=== PATIENT | female | born 1930 | race Caucasian/White ===

== ENCOUNTER 2016-12-04 14:17 | Emergency (ER) | payer OTHER ==
--- NOTE | 2016-12-04 15:29 | DIAGNOSTIC IMAGING REPORT ---
PROCEDURE: CT HEAD WITHOUT CONTRAST INDICATION: PAIN, high blood pressure, Parkinson's. TECHNIQUE: Axial CT images were acquired through the head. Coronal and sagittal reformations were created. COMPARISON: None. FINDINGS: Mild cerebral cortical and cerebellar atrophy. Moderate diffuse hypodensity in the periventricular and subcortical white matter. No intracranial hemorrhage or extraaxial fluid collections. Ventricles are normal in size, shape and position. There is no mass, mass effect or midline shift. The leo-white matter differentiation is normal. There is no edema. Heavy calcific atherosclerosis of the intracranial internal carotid arteries. The calvarium is intact. The paranasal sinuses and mastoid air cells are normally aerated. The extracranial soft tissues and orbits are normal. IMPRESSION: 1. No CT evidence of acute intracranial process. 2. Age related involutional and white matter changes. 3. Findings discussed with Ramona Guerra at [address] scans at this facility use dose modulation, iterative reconstruction, and/or weight-based dosing when appropriate to reduce radiation dose to as low as reasonably achievable.
--- NOTE | 2016-12-04 16:06 | DIAGNOSTIC IMAGING REPORT ---
PROCEDURE: XR CHEST 2 VIEW INDICATION: CHEST PAIN TECHNIQUE: PA and lateral view. COMPARISON: None. FINDINGS: Moderate hyperinflation. Lungs are clear. Cardiovascular structures are normal. Bilateral axillary surgical clips. Bony thorax is unremarkable. IMPRESSION: 1. Hyperinflation 2. No acute changes
--- NOTE | 2016-12-04 16:20 | ED ORDER SUMMARY ---
..... Patient: QUINN SIMS OrderSheet [facility] VisitID: [id number] [address] [place] [address] 86y, F Registration Date/Time: 12/04/2016 ORDER SHEET Weight: 48.0 kg (stated) Allergies: Flu Virus Vaccine GENERAL ORDERS: CT Head wo Cont Urgent (15:00 12/04/2016 EKoroleva P.A.-C) (Ack 15:16 PWeiler ER Tech1) (15:39 GMarshall R.N.) Chest 2V (ELEVATED BP) Urgent (15:00 12/04/2016 EKoroleva P.A.-C) (Ack 15:16 PWeiler ER Tech1) (15:39 GMarshall R.N.) EKG - ER Stat (15:01 12/04/2016 EKoroleva P.A.-C) (15:04 LNations ER Tech1) Call (Place call to): () (EKG from DR. Vela office (Old) to compare) (15:13 12/04/2016 EKoroleva P.A.-C) (Ack 15:16 PWeiler ER Tech1) (15:36 PWeiler ER Tech1) Vitals (BP) (1540) (15:35 12/04/2016 EKoroleva P.A.-C) (15:38 GMarshall R.N.) MEDICATION ORDERS: IV FLUIDS: IV NS : initial bolus 500 mL (1000 mL/hr), then 10 mL/hr for X1 (NOW); Dick (15:01 12/04/2016 EKoroleva P.A.-C) (15:44 JBest R.N.) ORDER SHEET NOTES: [Electronically signed by Pat Guerra P.A.-C (16:35 12/04/2016)] [Electronically signed by Yeimy Ramon R.N. (21:49 12/04/2016)] [Electronically locked/signed by Yeimy Ramon R.N. (21:49 12/04/2016)]
--- NOTE | 2016-12-04 16:20 | ED ORDER SUMMARY ---
..... Patient: QUINN SIMS OrderSheet [facility] VisitID: [id number] [address] [place] [address] 86y, F Registration Date/Time: 12/04/2016 ORDER SHEET Weight: 48.0 kg (stated) Allergies: Flu Virus Vaccine GENERAL ORDERS: CT Head wo Cont Urgent (15:00 12/04/2016 EKoroleva P.A.-C) (Ack 15:16 PWeiler ER Tech1) (15:39 GMarshall R.N.) Chest 2V (ELEVATED BP) Urgent (15:00 12/04/2016 EKoroleva P.A.-C) (Ack 15:16 PWeiler ER Tech1) (15:39 GMarshall R.N.) EKG - ER Stat (15:01 12/04/2016 EKoroleva P.A.-C) (15:04 LNations ER Tech1) Call (Place call to): () (EKG from DR. Vela office (Old) to compare) (15:13 12/04/2016 EKoroleva P.A.-C) (Ack 15:16 PWeiler ER Tech1) (15:36 PWeiler ER Tech1) Vitals (BP) (1540) (15:35 12/04/2016 EKoroleva P.A.-C) (15:38 GMarshall R.N.) MEDICATION ORDERS: IV FLUIDS: IV NS : initial bolus 500 mL (1000 mL/hr), then 10 mL/hr for X1 (NOW); Dick (15:01 12/04/2016 EKoroleva P.A.-C) (15:44 JBest R.N.) ORDER SHEET NOTES: [Electronically signed by Pat Guerra P.A.-C (16:35 12/04/2016)] [Electronically signed by Yeimy Ramon R.N. (21:49 12/04/2016)] [Electronically locked/signed by Yeimy Ramon R.N. (21:49 12/04/2016)]
--- NOTE | 2016-12-04 16:20 | ED NURSING NOTES ---
Clinical Report - Nurses [facility] [address] [place] [address] 12/04/2016 14:21 Patient: QUINN SIMS TRIAGE Triage time 14:38 Dec 04 2016. Chief Complaint: SHORTNESS OF BREATH. --14:41 Yeimy Ramon R.N. 14:51 12/04/16. BP: 137/65 taken on the right arm, manually, while lying. PA notified. HR: 80. RR: 18. O2 saturation: 96%. Temp: 98.2 F. Pain level now: 0/10. --14:55 Yeimy Ramon R.N. Acuity: LEVEL 3. --14:56 Yeimy Ramon R.N. 14:49. --17:47 Yeimy Ramon R.N. Weight: 48 kg stated. Height/Length: 64 inches Per Patient. BMI: 18.2. --14:37 Yeimy Ramon R.N. Medications Aspirin Oral. --14:43 Yeimy Ramon R.N. Carbidopa-Levodopa Oral 25/100 mg. --14:44 Yeimy Ramon R.N. ROPINIRole HCl Oral (Tablet 1 mg) 3 tabs, QID. --14:44 Yeimy Ramon R.N. Midodrine HCl Oral 2.5 mg, BID. --14:45 Yeimy Ramon R.N. Escitalopram Oxalate Oral 10 mg, at bedtime (1/2 tab (5mg)). --14:45 Yeimy Ramon R.N. Lumigan Ophthalmic. --14:46 Yeimy Ramon R.N. Vitamin B 12 Oral. --14:46 Yeimy Ramon R.N. Vitamin B-6 Oral. --14:46 Yeimy Ramon R.N. Vitamin D3 Oral (Tablet 2000 unit) 1 tablet. --14:46 Yeimy Ramon R.N. Fish Oil + D3 Oral (Capsule 1801-9068 mg-unit) 2 capsules. --14:47 Yeimy Ramon R.N. Zinc Oral (Tablet 50 mg) 1 tablet, daily. --14:47 Yeimy Ramon R.N. Allergies Flu Virus Vaccine. --17:47 Yeimy Ramon R.N. History Arrived by private vehicle. Historian: family. Accompanied by family. Primary physician (Mercedes). This started today. ( Has had increased BP throughout the morning and into this afternoon. At 1308 185/90 HR 87, at 1325 183/87 HR 83, at 1340 207/94 HR 87, at 1345 214/107 HR 83.). 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 (took benadryl because she thought she was having a reaction to something). --14:41 Yeimy Ramon R.N. PAST MEDICAL HX: Hypertension. Immunizations: up-to-date. The patient is post-menopausal. Denies current . SURGERY HX: Right and left mastectomy (in 2002). SOCIAL HX: Never smoker. No alcohol use or drug use. No infectious disease exposure. FALL RISK ASSESSMENT: Fall risk assessment completed. Risk factors identified include patient age greater than 65 years and impairment of mobility. Fall interventions initiated. Side rails up x2. Brakes on Bed in low position. Family at bedside. Call light in reach of patient. Instructed not to get up without assistance. --14:51 Yeimy Ramon R.N. PROBLEMS: Hypertension. Parkinsons. --14:42 Yeimy Ramon R.N. Cancer. --14:48 Yeimy Ramon R.N. Interventions ID band on patient. To room. --14:56 Yeimy Ramon R.N. PHYSICAL ASSESSMENT Ambulatory to room. GENERAL / NEURO / PSYCH: Alert. Oriented X 4. Appears in no acute distress. Appears anxious. RESPIRATORY: Respirations not labored. Breath sounds within normal limits. CVS: Pulses within normal limits. SKIN: Skin is warm and dry. Skin is non-tender. --15:01 Yeimy Ramon R.N. 14:48 12/04/16. BP: 148/105 (regular adult cuff) taken on the left arm, manually, while lying. --15:28 Yeimy Ramon R.N. NURSING PROGRESS NOTES Monitoring of patient in place. Patient gowned. Reassurance given. Patient identifiers checked. Call light placed in reach. Side rails up x 2. Bed placed in lowest position. Brakes of bed on. Patient ready for evaluation- PA notified. --15:01 Yeimy Ramon R.N. Patient transported to radiology by stretcher with tech. --15:12 Yeimy Ramon R.N. EKG time: (1512). EKG was ordered, performed by a tech and shown to the ED physician. --15:20 Jo-Ann Murdock, LALA Tech1 15:44 12/04/2016 Site #1 started via IV in the right forearm with an 22g angiocath, with aseptic technique and good blood return; one attempt. Blood drawn: rainbow set. Saline lock flushed with 10 mL saline. --15:44 Yeimy Ramon R.N. 15:44 12/04/2016 Started bag #1 1000 mL IV Fluids IV NS (Saline); bolus of 500 mL over 30 minute(s) via site #1 via IV pump. Allergies verified and confirmed 5 rights. IV patency established. IV site checked: no pain, redness, or swelling. IV flushed thoroughly pre- and post-medication administration. --15:44 Yeimy Ramon R.N. <<STRICKEN ENTRY-- 16:00 12/04/16. BP: 116/113 (regular adult cuff) taken on the left arm, via an automated monitor, while lying. HR: 86. --16:01 Yeimy Ramon R.N. --END STRIKE>> Correction. --16:04 Yeimy Ramon R.N. 16:01 12/04/16. BP: 158/97 (regular adult cuff) taken on the right arm, via an automated monitor, while lying. HR: 86. --16:02 Yeimy Ramon R.N. 16:00 12/04/16. BP: 168/113 (regular adult cuff) taken on the left arm, while lying. HR: 86. --16:05 Yeimy Ramon R.N. 16:26 12/04/2016 IV Fluids IV NS Discontinued: bag #1 STOPPED upon discharge. Total amount infused: 500 mL. --16:36 Yeimy aRmon R.N. DISPOSITION / DISCHARGE 16:28 12/04/16. BP: 156/92 (regular adult cuff) taken on the right arm, via an automated monitor, while lying. HR: 84. RR: 18. O2 saturation: 96%. Temp: 98.2 F. Pain level now: 0/10. --16:28 Yeimy Ramon R.N. 16:25 12/04/2016 Site #1 removed upon discharge. Catheter intact. Bandaid applied. --16:35 Yeimy Ramon R.N. Departure time: 16:35. Discharge instructions provided and reviewed with the patient and family. Patient and family verbalized understanding. Written instructions provided in Serbian. The patient was discharged by the physician promotional advertising assistant. She was discharged home and accompanied by family. She left the Emergency Department ambulatory, via private vehicle and (walker). Family member driving. --16:36 Yeimy Ramon R.N. Locked/Released at 12/04/2016 21:49 by Yeimy Ramon R.N.
--- NOTE | 2016-12-04 16:20 | ED CLINICAL REPORT ---
Clinical Report - Physicians/Mid Levels [facility] [address] [place] [address] 12/04/2016 14:21 Patient: QUINN SIMS Time Seen: 15:01 Dec 04 2016. Arrived- By private vehicle. Historian- patient and daughter. HISTORY OF PRESENT ILLNESS Chief Complaint: abd pain. This started just prior to arrival and is still present. No weight loss or fatigue. Denies sleep problem. She has had weakness. (The patient presents to the emergency department with her daughter, who reports patient had vague symptoms of some abdominal pain and cramping today earlier. Patient did not take her noon medications, daughter arrived, she encouraged to take her antihypertensive medications at 1 PM. She monitored herblood pressure while there and it was elevated greater than 200, they called primary care provider, and is referred into the emergency department. Patient has no symptoms currently.). REVIEW OF SYSTEMS No fever, sore throat, sinus drainage, cough or chills. All systems otherwise negative, except as recorded above. PAST HISTORY Problems: LVH. Cancer. Hypertension. Parkinsons. Additional Surgeries: Mastectomy. Medications: Zinc Oral (Tablet 50 mg) 1 tablet, daily. Fish Oil + D3 Oral (Capsule 9789-6138 mg-unit) 2 capsules. Vitamin D3 Oral (Tablet 2000 unit) 1 tablet. Vitamin B-6 Oral. Vitamin B 12 Oral. Lumigan Ophthalmic. Escitalopram Oxalate Oral 10 mg, at bedtime (1/2 tab (5mg)). Midodrine HCl Oral 2.5 mg, BID. ROPINIRole HCl Oral (Tablet 1 mg) 3 tabs, QID. Carbidopa-Levodopa Oral 25/100 mg. Aspirin Oral. SOCIAL HISTORY Never smoker. No alcohol use or drug use. ADDITIONAL NOTES The nursing notes have been reviewed. PHYSICAL EXAM Vital Signs: 12/04/2016 14:51 BP: 137/65. HR: 80. RR: 18. O2 saturation: 96%. Temp: 98.2 F. Pain level now: 0/10. 12/04/2016 14:48 BP: 148/105. Appearance: Alert. No acute distress. ENT: Ears normal. Nose normal. Neck: Normal inspection. CVS: Normal heart rate and rhythm. Heart sounds normal. Respiratory: No respiratory distress. Breath sounds normal. No accessory muscle use. Abdomen: No visible injury. Bowel sounds normal. Skin: Skin warm. Normal skin color. Neuro: Altered mental status. Eyes open spontaneously. Best verbal response: disoriented. Best motor response: obeys commands. (b/l hand tremor). LABS, X-RAYS, AND EKG EKG: EKG time: (1512). No acute process. No acute ischemia. LVH. EKG unchanged when compared with prior EKG. (05/10/15 on poor visualized EKG< paper/ shadowing, grossly no changes). The EKG appears to be a good tracing. Chest X-ray: (IMPRESSION: 1. Hyperinflation 2. No acute changes Electronically Final signed by:Dieudonne Bah MD 12/04/2016 4:06:42 PM). CT Head: (IMPRESSION: 1. No CT evidence of acute intracranial process. 2. Age related involutional and white matter changes. 3. Findings discussed with Ramona Guerra at [address] scans at this facility use dose modulation, iterative reconstruction, and/or weight-based dosing when appropriate to reduce radiation dose to as low as reasonably achievable. Electronically Final signed by:Catalina Ruiz MD 12/04/2016 3:29:33 PM). PROGRESS AND PROCEDURES Course of Care: Records reviewed, prior ECHO confirm LVH Patient given some IV hydration. CT of the head is unremarkable. Discussed options with family at bedside. No injury. Mom behaving her normal self per family, son and daughter. No signs of acute hemorrhage. Mom behaving her normal self. Stable. Unclear if she takes meds as appropriate, to monitor this and f/u outpatient with PCP. 12/04/2016 16:28 BP: 156/92. HR: 84. RR: 18. O2 saturation: 96%. Temp: 98.2 F. Pain level now: 0/10. 12/04/2016 16:01 BP: 158/97. HR: 86. Patient is stable. Symptoms better. Patient/family counseled. Disposition: Discharged. CLINICAL IMPRESSION Uncontrolled hypertension. Uncontrolled hypertension. INSTRUCTIONS (Follow up with Primary CARE DR in next 4-5 days IT is important to take timely medications on a regular basis to get in a good pattern for your Blood PRESSURE). (Electronically signed by Pat Guerra P.A.-C 12/04/2016 16:35)
--- NOTE | 2016-12-04 16:20 | ED NURSING NOTES ---
Clinical Report - Nurses [facility] [address] [place] [address] 12/04/2016 14:21 Patient: QUINN SIMS TRIAGE Triage time 14:38 Dec 04 2016. Chief Complaint: SHORTNESS OF BREATH. --14:41 Yeimy Ramon R.N. 14:51 12/04/16. BP: 137/65 taken on the right arm, manually, while lying. PA notified. HR: 80. RR: 18. O2 saturation: 96%. Temp: 98.2 F. Pain level now: 0/10. --14:55 Yeimy Ramon R.N. Acuity: LEVEL 3. --14:56 Yeimy Ramon R.N. 14:49. --17:47 Yeimy Ramon R.N. Weight: 48 kg stated. Height/Length: 64 inches Per Patient. BMI: 18.2. --14:37 Yeimy Ramon R.N. Medications Aspirin Oral. --14:43 Yeimy Ramon R.N. Carbidopa-Levodopa Oral 25/100 mg. --14:44 Yeimy Ramon R.N. ROPINIRole HCl Oral (Tablet 1 mg) 3 tabs, QID. --14:44 Yeimy Ramon R.N. Midodrine HCl Oral 2.5 mg, BID. --14:45 Yeimy Ramon R.N. Escitalopram Oxalate Oral 10 mg, at bedtime (1/2 tab (5mg)). --14:45 Yeimy Ramon R.N. Lumigan Ophthalmic. --14:46 Yeimy Ramon R.N. Vitamin B 12 Oral. --14:46 Yeimy Ramon R.N. Vitamin B-6 Oral. --14:46 Yeimy Ramon R.N. Vitamin D3 Oral (Tablet 2000 unit) 1 tablet. --14:46 Yeimy Ramon R.N. Fish Oil + D3 Oral (Capsule 9259-7830 mg-unit) 2 capsules. --14:47 Yeimy Ramon R.N. Zinc Oral (Tablet 50 mg) 1 tablet, daily. --14:47 Yeimy Ramon R.N. Allergies Flu Virus Vaccine. --17:47 Yeimy Ramon R.N. History Arrived by private vehicle. Historian: family. Accompanied by family. Primary physician (Mercedes). This started today. ( Has had increased BP throughout the morning and into this afternoon. At 1308 185/90 HR 87, at 1325 183/87 HR 83, at 1340 207/94 HR 87, at 1345 214/107 HR 83.). 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 (took benadryl because she thought she was having a reaction to something). --14:41 Yeimy Ramon R.N. PAST MEDICAL HX: Hypertension. Immunizations: up-to-date. The patient is post-menopausal. Denies current . SURGERY HX: Right and left mastectomy (in 2002). SOCIAL HX: Never smoker. No alcohol use or drug use. No infectious disease exposure. FALL RISK ASSESSMENT: Fall risk assessment completed. Risk factors identified include patient age greater than 65 years and impairment of mobility. Fall interventions initiated. Side rails up x2. Brakes on Bed in low position. Family at bedside. Call light in reach of patient. Instructed not to get up without assistance. --14:51 Yeimy Ramon R.N. PROBLEMS: Hypertension. Parkinsons. --14:42 Yeimy Ramon R.N. Cancer. --14:48 Yeimy Ramon R.N. Interventions ID band on patient. To room. --14:56 Yeimy Ramon R.N. PHYSICAL ASSESSMENT Ambulatory to room. GENERAL / NEURO / PSYCH: Alert. Oriented X 4. Appears in no acute distress. Appears anxious. RESPIRATORY: Respirations not labored. Breath sounds within normal limits. CVS: Pulses within normal limits. SKIN: Skin is warm and dry. Skin is non-tender. --15:01 Yeimy Ramon R.N. 14:48 12/04/16. BP: 148/105 (regular adult cuff) taken on the left arm, manually, while lying. --15:28 Yeimy Ramon R.N. NURSING PROGRESS NOTES Monitoring of patient in place. Patient gowned. Reassurance given. Patient identifiers checked. Call light placed in reach. Side rails up x 2. Bed placed in lowest position. Brakes of bed on. Patient ready for evaluation- PA notified. --15:01 Yeimy Ramon R.N. Patient transported to radiology by stretcher with tech. --15:12 Yeimy Ramon R.N. EKG time: (1512). EKG was ordered, performed by a tech and shown to the ED physician. --15:20 Jo-Ann Murdock, LALA Tech1 15:44 12/04/2016 Site #1 started via IV in the right forearm with an 22g angiocath, with aseptic technique and good blood return; one attempt. Blood drawn: rainbow set. Saline lock flushed with 10 mL saline. --15:44 Yeimy Ramon R.N. 15:44 12/04/2016 Started bag #1 1000 mL IV Fluids IV NS (Saline); bolus of 500 mL over 30 minute(s) via site #1 via IV pump. Allergies verified and confirmed 5 rights. IV patency established. IV site checked: no pain, redness, or swelling. IV flushed thoroughly pre- and post-medication administration. --15:44 Yeimy Ramon R.N. <<STRICKEN ENTRY-- 16:00 12/04/16. BP: 116/113 (regular adult cuff) taken on the left arm, via an automated monitor, while lying. HR: 86. --16:01 Yeimy Ramon R.N. --END STRIKE>> Correction. --16:04 Yeimy Ramon R.N. 16:01 12/04/16. BP: 158/97 (regular adult cuff) taken on the right arm, via an automated monitor, while lying. HR: 86. --16:02 Yeimy Ramon R.N. 16:00 12/04/16. BP: 168/113 (regular adult cuff) taken on the left arm, while lying. HR: 86. --16:05 Yeimy Ramon R.N. 16:26 12/04/2016 IV Fluids IV NS Discontinued: bag #1 STOPPED upon discharge. Total amount infused: 500 mL. --16:36 Yeimy Ramon R.N. DISPOSITION / DISCHARGE 16:28 12/04/16. BP: 156/92 (regular adult cuff) taken on the right arm, via an automated monitor, while lying. HR: 84. RR: 18. O2 saturation: 96%. Temp: 98.2 F. Pain level now: 0/10. --16:28 Yeimy Ramon R.N. 16:25 12/04/2016 Site #1 removed upon discharge. Catheter intact. Bandaid applied. --16:35 Yeimy Ramon R.N. Departure time: 16:35. Discharge instructions provided and reviewed with the patient and family. Patient and family verbalized understanding. Written instructions provided in Kyrgyz. The patient was discharged by the physician web marketing assistant. She was discharged home and accompanied by family. She left the Emergency Department ambulatory, via private vehicle and (walker). Family member driving. --16:36 Yeimy Ramon R.N. Locked/Released at 12/04/2016 21:49 by Yeimy Ramon R.N.
--- NOTE | 2016-12-04 21:49 | ED MED RECONCILIATION SUMMARY ---
Patient: QUINN SIMS Medication Reconciliation Report [facility] VisitID: [id number] [address] [place] [address] 86y, F Registration Date/Time: 12/04/2016 Weight: 48.0 kg Height/Length: 64 in. BMI: 18.2 ALLERGIES: Flu Virus Vaccine The patient's Home Medications are listed below: THE FOLLOWING MEDICATIONS NEED TO BE RECONCILED: Aspirin Oral Carbidopa-Levodopa Oral 25/100 mg Escitalopram Oxalate Oral 10 mg, at bedtime, 1/2 tab (5mg) Fish Oil + D3 Oral (3298-0221 mg-unit) 2 capsules Lumigan Ophthalmic Midodrine HCl Oral 2.5 mg, BID ROPINIRole HCl Oral (1 mg) 3 tabs, QID Vitamin B 12 Oral Vitamin B-6 Oral Vitamin D3 Oral (2000 unit) 1 tablet Zinc Oral (50 mg) 1 tablet, daily The source(s) of the original Home Medication information: Not obtained. The following Medications were given to the patient in the Emergency Department: IV NS IV Fluids bolus 500 mL over 30 minute(s), administered: 12/04/2016 3:44:00 PM The following Medications were prescribed to the patient: None.
--- NOTE | 2016-12-04 21:49 | ED MAR SUMMARY ---
..... Medication Administration Record [facility] [address] [place] [address] Patient: QUINN SIMS Visit ID: [id number] 86y, F Weight: 48.0 kg Height/Length: 64 in BMI: 18.2 ALLERGIES: Flu Virus Vaccine Start 15:44 12/04/2016 Yeimy Ramon R.N., Stop 16:26 12/04/2016 Yeimy Ramon R.N. Medication Administered: IV NS (SALINE), Dose: IV Fluids, Bolus: 500 mL over 30 minute(s), Dispensed: 1000 mL bag, Site: #1 right forearm. Medication Ordered: IV NS : initial bolus 500 mL (1000 mL/hr), then 10 mL/hr for X1 (NOW); Dick.
--- NOTE | 2016-12-04 21:49 | ED DISCHARGE INSTRUCTIONS ---
Patient: QUINN SIMS General Instructions [facility] VisitID: [id number] [place] [address] 86y, F Registration Date/Time: 12/04/2016 Uncontrolled hypertension. Uncontrolled hypertension. INSTRUCTIONS (Follow up with Primary CARE DR in next 4-5 days IT is important to take timely medications on a regular basis to get in a good pattern for your Blood PRESSURE). ADDITIONAL INFORMATION Hypertension, Out Of Control (Established) Your blood pressure was unusually high today. This can occur as a result of missing doses of your blood pressure medicine. Some asthma inhalers, decongestants, diet pills, and street drugs such as cocaine and amphetamine can worsen hypertension. An increase in body weight, increase in salt intake, smoking, and caffeine are other causes. Emotional upset or acute pain can cause a sudden rapid rise in blood pressure which may return to normal after a period of rest. A normal blood pressure is less than 140/90. The first (top) number is the systolic pressure. The second (bottom) number is the diastolic pressure. Hypertension exists when either the top number is 140 or higher, OR the bottom number is 90 or higher on repeated measurements. Home Care: All patients with high blood pressure should do the following to lower their pressure. If you are on blood pressure medicines, then these methods may reduce or eliminate your need for medicines in the future. Begin a weight-loss program if you are overweight. Reduce your salt intake. Avoid high-salt foods (olives, pickles, smoked meats, salted potato chips, etc.). Do not add salt to your food at the table. Use only small amounts of salt when cooking. Begin an exercise program. Discuss with your doctor what type of exercise program would be best for you. It doesnt have to be difficult. Even brisk walking for 20 minutes3 times a week is a good form of exercise. Avoid medicines which contain heart stimulants. This includes many cold and sinus decongestant pills and sprays as well as diet pills. Check the warnings about hypertension on the label. Stimulants such as amphetamine or cocaine could be lethal for someone with hypertension. Never take these. Limit your caffeine intake or switch to decaf. Stop smoking. If you are a long-time smoker, this can be hard. Enroll in a stop-smoking program to improve your chance of success. Talk to your physician about ways to improve your chance of success. Learning how to handle stress better is an important part of any program to lower blood pressure. Learn about relaxation methods such as meditation, yoga, or biofeedback. If medicines were prescribed, take them exactly as directed. Missing doses may cause your blood pressure to get out of control. Consider buying an automatic blood pressure machine (available at many pharmacies). Use this to monitor your blood pressure and report to your doctor. Follow Up: Regular visits to your own doctor for blood pressure checks and medicine adjustment is an important part of your care. Make a follow-up appointment as directed by our staff. Get Prompt Medical Attention if any of the following occur: Chest, arm, shoulder, neck, or upper back pain Shortness of breath Severe headache Throbbing or rushing sound in the ears Nosebleed Extreme drowsiness, confusion, or fainting Dizziness or vertigo (dizziness with spinning sensation) Weakness of an arm or leg or one side of the face Difficulty with speech or vision Hypertension, Out Of Control (Established) Your blood pressure was unusually high today. This can occur as a result of missing doses of your blood pressure medicine. Some asthma inhalers, decongestants, diet pills, and street drugs such as cocaine and amphetamine can worsen hypertension. An increase in body weight, increase in salt intake, smoking, and caffeine are other causes. Emotional upset or acute pain can cause a sudden rapid rise in blood pressure which may return to normal after a period of rest. A normal blood pressure is less than 140/90. The first (top) number is the systolic pressure. The second (bottom) number is the diastolic pressure. Hypertension exists when either the top number is 140 or higher, OR the bottom number is 90 or higher on repeated measurements. Home Care: All patients with high blood pressure should do the following to lower their pressure. If you are on blood pressure medicines, then these methods may reduce or eliminate your need for medicines in the future. Begin a weight-loss program if you are overweight. Reduce your salt intake. Avoid high-salt foods (olives, pickles, smoked meats, salted potato chips, etc.). Do not add salt to your food at the table. Use only small amounts of salt when cooking. Begin an exercise program. Discuss with your doctor what type of exercise program would be best for you. It doesnt have to be difficult. Even brisk walking for 20 minutes3 times a week is a good form of exercise. Avoid medicines which contain heart stimulants. This includes many cold and sinus decongestant pills and sprays as well as diet pills. Check the warnings about hypertension on the label. Stimulants such as amphetamine or cocaine could be lethal for someone with hypertension. Never take these. Limit your caffeine intake or switch to decaf. Stop smoking. If you are a long-time smoker, this can be hard. Enroll in a stop-smoking program to improve your chance of success. Talk to your physician about ways to improve your chance of success. Learning how to handle stress better is an important part of any program to lower blood pressure. Learn about relaxation methods such as meditation, yoga, or biofeedback. If medicines were prescribed, take them exactly as directed. Missing doses may cause your blood pressure to get out of control. Consider buying an automatic blood pressure machine (available at many pharmacies). Use this to monitor your blood pressure and report to your doctor. Follow Up: Regular visits to your own doctor for blood pressure checks and medicine adjustment is an important part of your care. Make a follow-up appointment as directed by our staff. Get Prompt Medical Attention if any of the following occur: Chest, arm, shoulder, neck, or upper back pain Shortness of breath Severe headache Throbbing or rushing sound in the ears Nosebleed Extreme drowsiness, confusion, or fainting Dizziness or vertigo (dizziness with spinning sensation) Weakness of an arm or leg or one side of the face Difficulty with speech or vision You have been given the following additional information: Hypertension, Established, Out Of Control Hypertension, Established, Out Of Control (Electronically signed by Pat Guerra P.A.-C 12/04/2016 16:35)
--- NOTE | 2016-12-04 21:49 | ED MED RECONCILIATION SUMMARY ---
Patient: QUINN SIMS Medication Reconciliation Report [facility] VisitID: [id number] [address] [place] [address] 86y, F Registration Date/Time: 12/04/2016 Weight: 48.0 kg Height/Length: 64 in. BMI: 18.2 ALLERGIES: Flu Virus Vaccine The patient's Home Medications are listed below: THE FOLLOWING MEDICATIONS NEED TO BE RECONCILED: Aspirin Oral Carbidopa-Levodopa Oral 25/100 mg Escitalopram Oxalate Oral 10 mg, at bedtime, 1/2 tab (5mg) Fish Oil + D3 Oral (0800-5292 mg-unit) 2 capsules [facility] Ophthalmic Midodrine HCl Oral 2.5 mg, BID ROPINIRole HCl Oral (1 mg) 3 tabs, QID Vitamin B 12 Oral Vitamin B-6 Oral Vitamin D3 Oral (2000 unit) 1 tablet Zinc Oral (50 mg) 1 tablet, daily The source(s) of the original Home Medication information: Not obtained. The following Medications were given to the patient in the Emergency Department: IV NS IV Fluids bolus 500 mL over 30 minute(s), administered: 12/04/2016 3:44:00 PM The following Medications were prescribed to the patient: None.
--- NOTE | 2016-12-04 21:49 | ED MAR SUMMARY ---
..... Medication Administration Record Merged With [facility] [address] [place] [address] Patient: QUINN SIMS Visit ID: [id number] 86y, F Weight: 48.0 kg Height/Length: 64 in BMI: 18.2 ALLERGIES: Flu Virus Vaccine Start 15:44 12/04/2016 Yeimy Ramon R.N., Stop 16:26 12/04/2016 Yeimy Ramon R.N. Medication Administered: IV NS (SALINE), Dose: IV Fluids, Bolus: 500 mL over 30 minute(s), Dispensed: 1000 mL bag, Site: #1 right forearm. Medication Ordered: IV NS : initial bolus 500 mL (1000 mL/hr), then 10 mL/hr for X1 (NOW); Dick.
== END 2016-12-04 16:35 | disposition home or self-care (01) ==
LOC: ED SRH 14:17
DX: I10 Essential (primary) hypertension (principal); R10.9 Unspecified abdominal pain; R41.82 Altered mental status, unspecified; Z79.899 Other long term (current) drug therapy; Z79.82 Long term (current) use of aspirin; G20 Parkinson's disease